=== PATIENT | male | born 1960 | race Caucasian/White ===

== ENCOUNTER 2022-10-07 01:47 | Emergency (ER) | payer MEDICAID ==
[~2022-10-07] VITALS: Ht 188 cm; Wt 85.0 kg
[2022-10-07 01:51] VITALS: BP 149/90
[2022-10-07] MEDS ORDERED: naproxen 500mg tablet PO ONE (03:25)
--- NOTE | 2022-10-07 03:37 | NUR ---
ICE PACK GIVEN TO THE PT PER MD REQUEST.
== END 2022-10-07 03:57 | disposition home or self-care (01) ==
LOC: ER 01:49
DX: G89.29 Other chronic pain (principal); M25.571 Pain in right ankle and joints of right foot; M25.572 Pain in left ankle and joints of left foot; M19.90 Unspecified osteoarthritis, unspecified site; F17.200 Nicotine dependence, unspecified, uncomplicated
CPT/HCPCS: 99283